=== PATIENT | male | born 1935 | race Caucasian/White ===

== ENCOUNTER 2016-07-09 15:15 | Outpatient (CLI) | payer MEDICARE, OTHER | END 2016-07-09 15:16 | disposition home or self-care (01) | DX: I10 Essential (primary) hypertension (principal); R97.20 Elevated prostate specific antigen [PSA]; I25.10 Atherosclerotic heart disease of native coronary artery without angina pectoris; E78.5 Hyperlipidemia, unspecified; Z79.899 Other long term (current) drug therapy; K21.9 Gastro-esophageal reflux disease without esophagitis ==

== ENCOUNTER 2016-08-18 08:56 | Day surgery (SDC) | payer MEDICARE, OTHER ==
[2016-08-18] MEDS ORDERED: LACTATED RINGERS 1,000 ML IV ONE (09:55)
[2016-08-18] MEDS ORDERED: MIDAZOLAM 2 MG/2 ML VIAL IVP ONE (10:50)
[2016-08-18] MEDS ORDERED: fentaNYL 100 MCG/2 ML VIAL IVP ONE (10:50)
[2016-08-18] MEDS ORDERED: LIDO GARGLE 30 ML BOTTLE TOP ONE (11:02)
== END 2016-08-18 08:57 | disposition home or self-care (01) ==
PROC: 0DB48ZX Excision of Esophagogastric Junction, Via Natural or Artificial Opening Endoscopic, Diagnostic (ICD-10-PCS; principal; 2016-08-18 10:00)
DX: K22.70 Barrett's esophagus without dysplasia (principal); K21.9 Gastro-esophageal reflux disease without esophagitis; Z87.891 Personal history of nicotine dependence
CPT/HCPCS: 43239; A9270; J7120

== ENCOUNTER 2016-11-24 22:07 | Outpatient (CLI) | payer MEDICARE, OTHER | END 2016-11-24 22:08 | disposition critical access hospital (66) | LOC: EMS 22:07 | PROVIDERS: ATTEND Surgery | DX: R07.9 Chest pain, unspecified (principal) | CPT/HCPCS: A0425; A0427 ==

== ENCOUNTER 2016-11-24 22:23 | Emergency (ER) | payer MEDICARE, OTHER ==
[2016-11-24 22:50] LABS: BASOPHILS # (AUTO) 0.1 10^3/uL (0.0-0.1); BASOPHILS % (AUTO) 0.9 %; EOSINOPHILS # (AUTO) 0.1 10^3/uL (0.0-0.7); EOSINOPHILS % (AUTO) 1.6 %; HCT - HEMATOCRIT 42.2 % (42.0-52.0); HGB - HEMOGLOBIN 14.2 g/dL (14.0-18.0); LYMPHOCYTES % (AUTO) 26.2 %; MEAN CORPUSCULAR HGB CONC 33.7 g/dL (32.0-36.0); MEAN CORPUSCULAR VOLUME 92.1 fL (80.0-94.0); MEAN PLATELET VOLUME 7.5 fL (7.4-11.4); MONOCYTES # (AUTO) 0.5 10^3/uL (0.0-1.0); MONOCYTES % (AUTO) 6.6 %; NEUTROPHILS # (AUTO) 4.9 10^3/uL (1.5-6.6); NEUTROPHILS % (AUTO) 64.7 %; NUCLEATED RED BLOOD CELLS AUTO 0.1 /100WBC; RED BLOOD COUNT 4.58 10^6/uL (4.70-6.10); RED CELL DISTRIBUTION WIDTH 14.7 % (12.0-15.0); UNCORRECTED WHITE BLOOD COUNT 7.6 x10^3/uL; WHITE BLOOD COUNT 7.6 x10^3/uL (4.8-10.8)
[2016-11-24 22:55] LABS: INR 1.1 (0.8-1.2); PT - PROTHROMBIN TIME 11.9 secs (9.9-12.6)
[2016-11-24 23:02] LABS: PARTIAL THROMBOPLASTIN TIME 24.2 secs (24.9-33.3)
[2016-11-24 23:04] LABS: ALBUMIN/GLOBULIN RATIO 1.5 (1.0-2.2); BILIRUBIN,TOTAL 0.7 mg/dL (0.2-1.0); CREATININE 1.6 mg/dL (0.6-1.2); TOTAL PROTEIN 6.9 g/dL (6.7-8.2)
--- NOTE | 2016-11-24 23:25 | XRAY Preliminary Report ---
Exam: XR Chest 1 View IMPRESSION: No acute intrathoracic plain film abnormality. [facility] SITE ID: [id number]
--- NOTE | 2016-11-24 23:28 | XRAY Report ---
EXAM: CHEST RADIOGRAPHY EXAM DATE: 11/24/2016 11:00 PM. CLINICAL HISTORY: Chest pain. COMPARISON: None. TECHNIQUE: 1 view. FINDINGS: Lungs/Pleura: No focal opacities evident. No pleural effusion. No pneumothorax. Mediastinum: Within exam limitations, cardiomediastinal contour is normal. Other: None. IMPRESSION: No acute intrathoracic plain film abnormality. [facility] Referring Provider Line: [phone] SITE ID: [id number]
--- NOTE | 2016-11-25 02:19 | ED Physician Documentation ---
PD HPI CHEST PAIN - Stated complaint Stated Complaint: CHEST PAIN - Chief complaint Chief Complaint: Cardiac - History obtained from History obtained from: Patient, Family - History of Present Illness Timing - onset: How many hours ago (2) Timing - onset during: Rest Timing - details: Abrupt onset, Now resolved Quality: Pressure, Sharp Location: Substernal, Epigastric Radiation: Back Associated symptoms: Diaphoresis. No: Shortness of air, Nausea, Vomiting, Feeling faint / dizzy, General Weakness Similar symptoms before: Work up / diagnostics, Treatment Recently seen: Not recently seen - Additional information Additional information: Patient is a 81 year old male who is presenting to the emergency department for chest pain. patient states that he was woken up from sleep with substernal left sided chest pain. he got up and felt a little sweating, called the ambulance and took three aspirin. When ambulance arrived patient was feeling a bit better and brought the patient into the emergency department. Upon initial evaluation in the emergency department patient denied any pain at that time. Review of Systems Constitutional: denies: Fever, Chills Eyes: denies: Loss of vision, Decreased vision Ears: denies: Loss of hearing, Ear pain Nose: denies: Rhinorrhea / runny nose, Congestion, Epistaxis Throat: denies: Dental pain / toothache, Oral lesions / sores Cardiac: reports: Chest pain / pressure. denies: Palpitations, Calf pain Respiratory: denies: Cough, Wheezing GI: denies: Abdominal Pain, Nausea, Vomiting, Constipation : denies: Dysuria, Frequency, Hesitancy Skin: denies: Rash, Lesions Musculoskeletal: denies: Neck pain, Back pain, Extremity pain, Joint pain Neurologic: denies: Generalized weakness, Focal weakness, Numbness Immunocompromised: denies: Immunocompromised PD PAST MEDICAL HISTORY - Past Medical History Past Medical History: Yes Cardiovascular: None Respiratory: None Neuro: None Endocrine/Autoimmune: None GI: GERD : Benign prostate hypertrophy HEENT: None Psych: None Musculoskeletal: Osteoporosis Derm: None - Past Surgical History Past Surgical History: Yes General: Cholecystectomy, Other Ortho: Shoulder arthroplasty, Arthroscopic surgery HEENT: Tonsil/Adenoidectomy Derm: Skin cancer surgery - Present Medications Home Medications: Ambulatory Orders Medication Instructions Recorded Confirmed Alendronate Sodium [Fosamax] 70 mg PO DAILY 12/10/14 03/25/15 Aspirin [Ecotrin] 81 mg PO DAILY 12/10/14 08/18/16 Atorvastatin Calcium [Lipitor] 20 mg PO DAILY 12/10/14 08/18/16 Calcium Carbonate/Vitamin D3 1 tab PO DAILY 12/10/14 03/25/15 [Calcium 600 + D Tablet] Nitroglycerin [Nitrostat] 0.4 mg PO TID 12/10/14 03/25/15 HYDROcod/ACETAM 5/325 [[place] 5/325] 1 - 2 ea PO Q6H PRN #20 tablet 03/22/1511/02 Promethazine [Phenergan] 25 - 50 mg PO Q6H PRN #10 tab 03/22/15 03/25/15 Omeprazole [Prilosec] 20 mg PO BID #60 capsule. 03/23/15 08/18/16 Sucralfate [Carafate] 1 gm PO ACHS #90 udc 03/23/15 03/25/15 Metoprolol Succinate [Toprol Xl] 25 mg ORAL DAILY 08/18/16 08/18/16 - Allergies Allergies/Adverse Reactions: Allergies Allergy/AdvReac Type Severity Reaction Status Date / Time clopidogrel bisulfate * Allergy Rash Verified 11/24/16 22:31 [From Plavix] - Social History Does the pt smoke?: No Smoking Status: Never smoker Does the pt drink ETOH?: No Does the pt have substance abuse?: No - Immunizations Immunizations are current?: Yes - POLST Patient has POLST: No PD ED PE NORMAL - Vitals Vital signs reviewed: Yes - General General: Alert and oriented X 3, No acute distress, Well developed/nourished - HEENT HEENT: Atraumatic, PERRL, Pharynx benign - Neck Neck: Supple, no meningeal sign, No JVD - Cardiac Cardiac: RRR, No murmur - Respiratory Respiratory: No respiratory distress, Clear bilaterally - Abdomen Abdomen: Soft, Non tender, Non distended - Derm Derm: Normal color, Warm and dry, No rash - Extremities Extremities: No deformity, Normal ROM s pain, No edema, No calf tenderness / cord - Neuro Neuro: Alert and oriented X 3, No motor deficit, No sensory deficit, Normal speech - Psych Psych: Normal mood, Normal affect Results - Vitals Vitals: Vital Signs - 24 hr 11/24/16 11/25/16 11/25/16 22:25 00:25 02:43 Temperature 36.3 C L Heart Rate 54 L 50 L 50 L Respiratory 17 16 16 Rate Blood Pressure 140/85 H 114/67 111/55 L O2 Saturation 95 96 98 Oxygen O2 Source Room air - EKG (time done) 2227 Rate: Rate (enter#) (49) Rhythm: Sinus bradycardia [place]: Normal Intervals: Normal NH QRS: Normal Ischemia: Normal ST segments - Labs Labs: Laboratory Tests 11/24/16 11/24/16 11/24/16 22:40 22:40 22:40 WBC 7.6 RBC 4.58 L Hgb 14.2 Hct 42.2 MCV 92.1 MCH 31.0 MCHC 33.7 RDW 14.7 Plt Count 172 MPV 7.5 Neut # 4.9 Lymph # 2.0 [place] # 0.5 Eos # 0.1 Baso # 0.1 Absolute Nucleated RBC 0.01 Nucleated RBCs 0.1 PT 11.9 INR 1.1 APTT 24.2 L Sodium 141 Potassium 4.0 Chloride 101 Carbon Dioxide 32 Anion Gap 8.0 BUN 36 H Creatinine 1.6 H Estimated GFR (MDRD) 42 L Glucose 128 H Calcium 10.0 Total Bilirubin 0.7 AST 51 H ALT 36 Alkaline Phosphatase 38 L Troponin I B-Natriuretic Peptide Total Protein 6.9 Albumin 4.1 Globulin 2.8 Albumin/Globulin Ratio 1.5 Lipase 266 H 11/24/16 11/24/16 11/25/16 22:40 22:40 01:35 WBC RBC Hgb Hct MCV MCH MCHC RDW Plt Count MPV Neut # Lymph # [place] # Eos # Baso # Absolute Nucleated RBC Nucleated RBCs PT INR APTT Sodium Potassium Chloride Carbon Dioxide Anion Gap BUN Creatinine Estimated GFR (MDRD) Glucose Calcium Total Bilirubin AST ALT Alkaline Phosphatase Troponin I < 0.04 < 0.04 B-Natriuretic Peptide 36 Total Protein Albumin Globulin Albumin/Globulin Ratio Lipase - Rads (name of study) chest x-ray Radiology: Final report received (no acute disease process) PD MEDICAL DECISION MAKING - ED course Complexity details: reviewed old records, reviewed results, re-evaluated patient , considered differential, d/w patient, d/w family ED course: Patient was seen and examined at bedside. ekg was performed and was within normal limits. labs were drawn and chest x-ray was performed and was within normal limits. Patient's diagnostics, including repeat troponin were wihtin normal limits. patient's HEART score was less than three. Patient required no further work up at this time and patient was stable for discharge with close outpatient follow up. Patient and family felt comfortable with the plan and stated that they would follow up with there pmd. Departure - Departure Disposition: 01 Home, Self Care Clinical Impression: Atypical chest pain Condition: Good Instructions: ED Chest Pain Atypical Unkn Cause Follow-Up: Jung Mary MD [Primary Care Provider] - Tomorrow Comments: Your diagnostics today were within normal limits, meaning its less likely to be cardiac in nature. that being said it is only a snapshot in time. You should call your pmd today to schedule a follow up appointment including an echocardiogram and a stress test. You can return to the emergency department at any time for new, worsening or uncontrollable symptoms. Discharge Date/Time: 11/25/16 02:45
[2016-11-25 02:44] VITALS: BP 111/55
== END 2016-11-25 02:45 | disposition home or self-care (01) ==
LOC: EDUNIT# → ED 22:23
DX: R07.89 Other chest pain (principal)
CPT/HCPCS: 36415; 71010; 80053; 83690; 83880; 84484; 85025; 85610; 85730; 93005; 93010; 99284

== ENCOUNTER 2016-12-29 07:11 | Outpatient (CLI) | payer MEDICARE, OTHER | END 2016-12-29 07:12 | disposition home or self-care (01) | DX: R74.0 Nonspecific elevation of levels of transaminase and lactic acid dehydrogenase [LDH] (principal) ==

== ENCOUNTER 2017-07-14 07:19 | Outpatient (CLI) | payer MEDICARE, OTHER ==
[2017-07-14 13:35] LABS: ALBUMIN/GLOBULIN RATIO 1.5 (1.0-2.2); ALKALINE PHOSPHATASE 32 IU/L (42-121); ALT ALANINE AMINOTRANSFERASE 20 IU/L (10-60); AST ASPARTATE AMINOTRANSFERASE 25 IU/L (10-42); BILIRUBIN,TOTAL 0.6 mg/dL (0.2-1.0); BUN - BLOOD UREA NITROGEN 23 mg/dL (6-20); CALCIUM 9.3 mg/dL (8.5-10.3); CARBON DIOXIDE - CO2 30 mmol/L (21-32); CHLORIDE 102 mmol/L (101-111); CHOL/HDL RATIO 2.9 (<5.0); CHOLESTEROL 176 mg/dL; GFR - MDRD 72 (>89); GLUCOSE 99 mg/dL (70-100); HDL CHOLESTEROL 60 mg/dL; LDL CHOLESTEROL,CALCULATED 100 mg/dL; LDL/HDL RATIO 1.7 (<3.6); SODIUM 138 mmol/L (135-145); TOTAL PROTEIN 6.7 g/dL (6.7-8.2); VLDL CHOLESTEROL 16 mg/dL
[2017-07-14 13:47] LABS: HB2 TOTAL 16.8 g/dL; HEMOGLOBIN A1C 0.6 g/dL; HEMOGLOBIN A1C % 5.4 % (4.6-6.2)
== END 2017-07-14 07:20 | disposition home or self-care (01) ==
LOC: LAB.WCP 07:19
PROVIDERS: ATTEND Family Medicine
DX: R73.01 Impaired fasting glucose (principal); E78.5 Hyperlipidemia, unspecified; R97.20 Elevated prostate specific antigen [PSA]; I25.10 Atherosclerotic heart disease of native coronary artery without angina pectoris; Z79.899 Other long term (current) drug therapy
CPT/HCPCS: 36415; 80053; 80061; 83036; 83721; 84153

== ENCOUNTER 2017-11-08 07:12 | Emergency (ER) | payer MEDICARE, OTHER ==
[2017-11-08 07:20] VITALS: BP 135/69
[2017-11-08] MEDS ORDERED: DEXAMETHASONE 10 MG/ML VIAL PO STA (07:31)
[2017-11-08] MEDS ORDERED: CETIRIZINE 10 MG TABLET PO STA (07:31)
[2017-11-08] MEDS ORDERED: IBUPROFEN 600 MG TABLET PO STA (07:31)
--- NOTE | 2017-11-08 07:34 | ED Physician Documentation ---
PD HPI URI - Stated complaint Stated Complaint: COUGH/THROAT PX - Chief complaint Chief Complaint: General - History obtained from History obtained from: Patient, Family - History of Present Illness Timing - onset: How many days ago (3) Timing duration: Days (3) Timing details: Gradual onset Pain level max: 6 Pain level now: 5 Associated symptoms: Fever (Subjective), Chills, Nasal congestion, Rhinorrhea, Sore throat (States this morning his throat was more sore.), Productive cough ( Clear phlegm). No: Hemoptysis, Chest pain, Dyspnea Contributing factors: No: Immunocompromised, Unimmunized, COPD / asthma Improves by: Rest Worsened by: Activity, Other (Swallowing) Recently seen: Not recently seen Review of Systems Ten Systems: 10 systems reviewed and negative Ears: denies: Ear pain Cardiac: denies: Chest pain / pressure Respiratory: denies: Wheezing GI: denies: Abdominal Pain, Nausea, Vomiting, Constipation, Diarrhea Skin: denies: Rash Musculoskeletal: denies: Neck pain, Back pain Neurologic: denies: Headache PD PAST MEDICAL HISTORY - Past Medical History Cardiovascular: None Respiratory: None Endocrine/Autoimmune: None GI: GERD : Benign prostate hypertrophy HEENT: None Psych: None Musculoskeletal: Osteoporosis Derm: None - Past Surgical History Past Surgical History: Yes General: Cholecystectomy, Other Ortho: Shoulder arthroplasty, Arthroscopic surgery HEENT: Tonsil/Adenoidectomy Derm: Skin cancer surgery - Present Medications Home Medications: Ambulatory Orders Medication Instructions Recorded Confirmed Aspirin [Ecotrin] 81 mg PO DAILY 12/10/14 08/18/16 Atorvastatin Calcium [Lipitor] 20 mg PO DAILY 12/10/14 08/18/16 Calcium Carbonate/Vitamin D3 1 tab PO DAILY 12/10/14 03/25/15 [Calcium 600 + D Tablet] Nitroglycerin [Nitrostat] 0.4 mg PO TID 12/10/14 03/25/15 HYDROcod/ACETAM 5/325 [[place] 5/325] 1 - 2 ea PO Q6H PRN #20 tablet 03/22/1511/02 Omeprazole [Prilosec] 20 mg PO BID #60 capsule. 03/23/15 08/18/16 Metoprolol Succinate [Toprol Xl] 25 mg ORAL DAILY 08/18/16 08/18/16 Benzonatate [Tessalon Perle] 100 - 200 mg PO TID PRN #30 capsule 11/08/17 Cetirizine [ZyrTEC] 10 mg PO DAILY PRN #30 tablet 11/08/17 Meloxicam [Mobic] 7.5 mg PO BID PRN #20 tablet 11/08/17 - Allergies Allergies/Adverse Reactions: Allergies Allergy/AdvReac Type Severity Reaction Status Date / Time clopidogrel bisulfate * Allergy Rash Verified 11/08/17 07:20 [From Plavix] - Social History Does the pt smoke?: No Smoking Status: Never smoker Does the pt drink ETOH?: No Does the pt have substance abuse?: No - Immunizations Immunizations are current?: Yes - POLST Patient has POLST: No PD ED PE NORMAL - Vitals Vital signs reviewed: Yes - General General: Alert and oriented X 3, No acute distress - HEENT HEENT: Ears normal, Moist mucous membranes, Other (Moderate posterior oropharyngeal erythema without tonsillar exudates. Uvula midline.) - Neck Neck: Supple, no meningeal sign, No adenopathy - Cardiac Cardiac: RRR, Strong equal pulses - Respiratory Respiratory: No respiratory distress, Other (Rhonchi throughout the right lung. Left lung is clear) - Abdomen Abdomen: Soft, Non tender, Non distended - Back Back: No spinal TTP - Derm Derm: Warm and dry, No rash - Extremities Extremities: No edema, No calf tenderness / cord - Neuro Neuro: Alert and oriented X 3 - Psych Psych: Normal mood, Normal affect Results - Vitals Vitals: Vital Signs - 24 hr 11/08/17 07:17 Temperature 36.4 C L Heart Rate 64 Respiratory 15 Rate Blood Pressure 135/69 H O2 Saturation 97 Oxygen O2 Source Room air - Labs Labs: Laboratory Tests 11/08/17 07:29 Group A Strep Rapid Negative - Rads (name of study) cxr Radiology: Prelim report reviewed, EMP read contemporaneously, See rad report ( no acute disease) PD MEDICAL DECISION MAKING - ED course Complexity details: reviewed results, re-evaluated patient, considered differential, d/w patient, d/w family ED course: Patient is an 82-year-old male who presents to the emergency department what appears to be a viral upper respiratory infection. He is well-appearing, nontoxic. Afebrile. No hypoxia. No respiratory distress. Lungs are clear to auscultation bilaterally on serial examination. No acute findings on chest x- ray. Rapid strep is negative. Feels better after dexamethasone. Will continue supportive care and follow-up with his doctor. Patient and family counseled regarding signs and symptoms for which I believe and urgent re- evaluation would be necessary. Patient with good understanding of and agreement to plan and is comfortable going home at this time This document was made in part using voice recognition software. While efforts are made to proofread this document, sound alike and grammatical errors may occur. Departure - Departure Disposition: Home, Self Care Clinical Impression: Viral pharyngitis URI (upper respiratory infection) Qualifiers: URI type: unspecified viral URI Qualified Code(s): J06.9 - Acute upper respiratory infection, unspecified Condition: Good Instructions: ED Pharyngitis Viral Follow-Up: Jung Mary MD [Primary Care Provider] - Within 1 week Prescriptions: Benzonatate [Tessalon Perle] 100 - 200 mg PO TID PRN #30 capsule PRN Reason: Cough Cetirizine [ZyrTEC] 10 mg PO DAILY PRN #30 tablet PRN Reason: Nasal Congestion Meloxicam [Mobic] 7.5 mg PO BID PRN #20 tablet PRN Reason: Pain Comments: The sore throat should improve over the next 2-3 days. Return if you worsen. The cough will likely last for approximately 2 weeks. Drink plenty of fluids and rest. Discharge Date/Time: 11/08/17 08:34
[2017-11-08] MEDS ORDERED: CHERRY SYRUP 10 ML UDC PO ONE (07:54)
--- NOTE | 2017-11-08 08:04 | XRAY Preliminary Report ---
Exam: XR CHEST 2 VIEW X-RAY IMPRESSION: No active cardiopulmonary disease [facility] SITE ID: [id number]
--- NOTE | 2017-11-08 08:05 | XRAY Report ---
EXAM: CHEST RADIOGRAPHY EXAM DATE: 11/08/2017 07:53 AM. CLINICAL HISTORY: Cough. COMPARISON: 11/24/2016. TECHNIQUE: 2 views. FINDINGS: Lungs/Pleura: No focal opacities evident. No pleural effusion. No pneumothorax. Normal volumes. Mediastinum: Heart and mediastinal contours are unremarkable. Other: DJD spine. Mild wedging mid thoracic vertebral bodies IMPRESSION: No active cardiopulmonary disease [facility] Referring Provider Line: [phone] SITE ID: [id number]
== END 2017-11-08 08:34 | disposition home or self-care (01) ==
LOC: ED 07:12
DX: J02.9 Acute pharyngitis, unspecified (principal); J06.9 Acute upper respiratory infection, unspecified; B97.89 Other viral agents as the cause of diseases classified elsewhere; Z79.82 Long term (current) use of aspirin
CPT/HCPCS: 71046; 87070; 87430; 99283; A9270

== ENCOUNTER 2018-01-28 08:00 | Outpatient (CLI) | payer MEDICARE, OTHER ==
[2018-01-28 12:43] LABS: ALBUMIN/GLOBULIN RATIO 1.5 (1.0-2.2); ALKALINE PHOSPHATASE 33 IU/L (42-121); ALT ALANINE AMINOTRANSFERASE 18 IU/L (10-60); AST ASPARTATE AMINOTRANSFERASE 25 IU/L (10-42); BILIRUBIN,TOTAL 0.7 mg/dL (0.2-1.0); BUN - BLOOD UREA NITROGEN 23 mg/dL (6-20); CALCIUM 9.1 mg/dL (8.5-10.3); CARBON DIOXIDE - CO2 31 mmol/L (21-32); CHLORIDE 103 mmol/L (101-111); CHOL/HDL RATIO 2.8 (<5.0); CHOLESTEROL 200 mg/dL; CREATININE 0.9 mg/dL (0.6-1.2); GFR - MDRD 81 (>89); GLUCOSE 103 mg/dL (70-100); HDL CHOLESTEROL 72 mg/dL; LDL CHOLESTEROL,CALCULATED 106 mg/dL; LDL/HDL RATIO 1.5 (<3.6); SODIUM 139 mmol/L (135-145); TOTAL PROTEIN 6.6 g/dL (6.7-8.2); VLDL CHOLESTEROL 22 mg/dL
[2018-01-28 13:28] LABS: HB2 TOTAL 16.1 g/dL; HEMOGLOBIN A1C 0.57 g/dL; HEMOGLOBIN A1C % 5.4 % (4.6-6.2)
== END 2018-01-28 08:01 | disposition home or self-care (01) ==
LOC: LAB.WCP 08:00
PROVIDERS: ATTEND Family Medicine
DX: R73.01 Impaired fasting glucose (principal); Z79.899 Other long term (current) drug therapy; I25.10 Atherosclerotic heart disease of native coronary artery without angina pectoris; E78.5 Hyperlipidemia, unspecified
CPT/HCPCS: 36415; 80053; 80061; 83036; 83721

== ENCOUNTER 2019-12-27 11:02 | Outpatient (CLI) | payer MEDICARE, OTHER ==
--- NOTE | 2019-12-27 12:07 | CARDIAC PROCEDURE NOTE ---
DATE OF SERVICE: 12/27/2019 Physician: Teresa Mendoza MD, [facility] INDICATION: CAD, hyperlipidemia. CARDIAC RISK FACTORS: Advanced age, hyperlipidemia. The patient also has known CAD; reports having 2 angiograms in the past. A diagnosis of hyperlipidemia is present, but the patient takes no cholesterol medications. DESCRIPTION OF PROCEDURE: After signing informed consent, the patient underwent a Darshan-protocol treadmill stress test. No imaging was ordered with this test. RESTING HEART RATE: 45. PEAK HEART RATE: 124 (89% predicted maximum heart rate for age). RESTING BLOOD PRESSURE: 137/102. PEAK BLOOD PRESSURE: 182/91. Patient exercised for 9 minutes on a Darshan-protocol treadmill stress test. He achieved a peak heart rate of 124 (89% PMHR) and 10.2 METs. Blood pressure was elevated at rest and throughout exercise and recovery. The patient had no chest pain or shortness of breath. He described his perceived exertion at 13/20 on the [place]am[place] scale. Oxygen saturation was 95% to 98% on room air throughout the test. RESTING EKG: Sinus bradycardia, rate 45, U waves are present, otherwise within normal limits. EKG AT PEAK: Upsloping ST-segment depressions are present inferolaterally. SUMMARY 1. Borderline abnormal EKG (consider electrolyte abnormality, given the presence of U waves). 2. Excellent exercise tolerance. 3. Uncontrolled hypertension noted throughout this test, possibly since he reports stopping Toprol 1 week ago. 4. Nonspecific ST changes occur with exercise, not specific for ischemia. 5. This patient's cardiac risk based on all the above: Low. cc: Loco Mcdaniel DO TD: 12/27/2019 11:58 [facility]
== END 2019-12-27 11:03 | disposition home or self-care (01) ==
LOC: DI 11:02
PROVIDERS: ATTEND Family Medicine
DX: R94.31 Abnormal electrocardiogram [ECG] [EKG] (principal); I10 Essential (primary) hypertension; I25.10 Atherosclerotic heart disease of native coronary artery without angina pectoris; E78.5 Hyperlipidemia, unspecified
CPT/HCPCS: 93016; 93017; 93018

== ENCOUNTER 2023-06-28 08:00 | Outpatient (CLI) | payer MEDICARE, OTHER | END 2023-06-28 23:59 | disposition home or self-care (01) | LOC: LAB.N 08:00 | PROVIDERS: ATTEND Physician Assistant Medical | DX: R31.9 Hematuria, unspecified (principal) | CPT/HCPCS: 87086 ==